=== PATIENT | female | born 1995 | race Caucasian/White ===

== ENCOUNTER 2017-02-10 23:54 | Emergency (ER) | payer SELFPAY ==
[~2017-02-10] VITALS: Ht 160 cm; Wt 68.0 kg
[~2017-02-10 23:54] MED LIST: DELTASONE20 M1 PO; FLONASE ALLERG9.9 ML NAS; PREDNISONE10 MG PO; ROBITUSSIN AC 110 ML PO
[2017-02-11 00:06] VITALS: BP 143/86
[2017-02-11 00:24] LABS: BILIRUBIN NEGATIVE (NEGATIVE); BLOOD NEGATIVE (NEGATIVE); CLARITY CLEAR (CLEAR); COLOR YELLOW (YELLOW); GLUCOSE NEGATIVE (NEGATIVE); KETONE NEGATIVE (NEGATIVE); LEUKO ESTERASE NEGATIVE (NEGATIVE); NITRITE NEGATIVE (NEGATIVE); PROTEIN NEGATIVE (NEGATIVE); UROBILINOGEN 0.2 E.U./dl (0.2-1.0)
[2017-02-11 00:36] LABS: BACTERIA 2+; RBC 0-2 rbc/hpf (0-2); URINE REFLEX COMMENT YES (NO); WBC 0-2 wbc/hpf (0-5)
[2017-02-11] MEDS ORDERED: Motrin,Rufen800 MG PO (01:49)
[2017-02-11] MEDS ORDERED: CYCLOBENZAPRINE5 M3 PO (01:49)
== END 2017-02-11 02:22 | disposition home or self-care (01) ==
LOC: ED 23:54
PROVIDERS: Physician Assistant
DX: M54.5 Low back pain (principal); M25.551 Pain in right hip; M25.552 Pain in left hip; F17.200 Nicotine dependence, unspecified, uncomplicated

== ENCOUNTER 2017-10-22 10:46 | Emergency (ER) | payer SELFPAY ==
[~2017-10-22] VITALS: Ht 162.5 cm; Wt 63.5 kg
[~2017-10-22 10:46] MED LIST changes: +CYCLOBENZAPRINE5 M3 PO; +Motrin,Rufen800 MG PO
[2017-10-22 10:56] VITALS: BP 126/68
[2017-10-22] MEDS ORDERED: AUGMENTIN 875875 MG PO (11:20)
== END 2017-10-22 11:33 | disposition home or self-care (01) ==
LOC: ED 10:46
DX: J02.0 Streptococcal pharyngitis (principal)

== ENCOUNTER 2017-11-24 20:22 | Emergency (ER) | payer SELFPAY ==
[~2017-11-24] VITALS: Ht 160 cm; Wt 67.1 kg
[~2017-11-24 20:22] MED LIST changes: +AUGMENTIN 875875 MG PO
[2017-11-24 20:34] VITALS: BP 126/79
[2017-11-24] MEDS ORDERED: AMOXICILLIN500 M2 PO (21:02)
== END 2017-11-24 21:05 | disposition home or self-care (01) ==
LOC: ED 20:22
DX: J03.00 Acute streptococcal tonsillitis, unspecified (principal); F17.200 Nicotine dependence, unspecified, uncomplicated; Z79.899 Other long term (current) drug therapy

== ENCOUNTER 2017-12-13 23:05 | Emergency (ER) | payer SELFPAY ==
[~2017-12-13] VITALS: Ht 160 cm; Wt 65.8 kg
[~2017-12-13 23:05] MED LIST changes: +AMOXICILLIN500 M2 PO
[2017-12-13 23:48] LABS: BASO % 0.5 % (0.0-1.0); EOS # 0.2 10*3/uL (0.0-0.4); EOS % 2.2 % (1.0-4.0); HEMOGLOBIN 14.5 g/dl (12.0-16.0); LYMPH # 2.9 10*3/uL (1.3-4.4); LYMPH % 35.4 % (27.0-41.0); MEAN CELL VOLUME 89.2 fl (81.0-99.0); MEAN CORPUSCULAR HGB 30.8 pg (27.0-31.0); MEAN CORPUSCULAR HGB CONC 34.5 g/dl (33.0-37.0); MONO % 11.8 % (3.0-9.0); NEUT # 4.1 10*3/uL (2.3-7.9); NEUT % 49.9 % (47.0-73.0); PLATELET COUNT AUTOMATED 240 10*3/uL (130-400); RED BLOOD COUNT 4.71 10*6/uL (4.10-5.10); RED CELL DISTRI WIDTH 12.2 % (0-14.5); WHITE BLOOD COUNT 8.2 10*3/uL (4.8-10.8)
[2017-12-14] LABS: BUN 8 mg/dl (7-24); CHLORIDE 102 mmol/L (98-107); CREATININE 0.72 mg/dL (0.55-1.02); POTASSIUM 3.9 mmol/L (3.5-5.1); SODIUM 138 mmol/L (136-145)
[2017-12-14] MEDS ORDERED: ZOFRAN ODT4 MG SL (00:36)
[2017-12-14] MEDS ORDERED: LOMOTIL 2.5-0.1 EACH PO (00:37)
[2017-12-14 01:15] VITALS: BP 118/73
== END 2017-12-14 01:01 | disposition home or self-care (01) ==
LOC: ED 23:05
PROVIDERS: Emergency Medicine Emergency Medical Services
DX: K52.9 Noninfective gastroenteritis and colitis, unspecified (principal); F17.200 Nicotine dependence, unspecified, uncomplicated; Z79.899 Other long term (current) drug therapy

== ENCOUNTER 2019-11-25 08:54 | Emergency (ER) | payer SELFPAY ==
[~2019-11-25] VITALS: Ht 162.5 cm; Wt 63.5 kg
[~2019-11-25 08:54] MED LIST changes: +LOMOTIL 2.5-0.1 EACH PO; +ZOFRAN ODT4 MG SL
[2019-11-25 09:07] VITALS: BP 122/70
[2019-11-25 09:47] LABS: CLARITY CLOUDY (CLEAR); COLOR YELLOW (YELLOW); GLUCOSE NEGATIVE (NEGATIVE)
[2019-11-25 09:48] LABS: BILIRUBIN NEGATIVE (NEGATIVE); BLOOD NEGATIVE (NEGATIVE); KETONE NEGATIVE (NEGATIVE); LEUKO ESTERASE TRACE (NEGATIVE); NITRITE NEGATIVE (NEGATIVE); UROBILINOGEN 0.2 E.U./dl (0.2-1.0)
[2019-11-25 09:50] LABS: BASO % 0.4 % (0.0-1.0); EOS % 0.4 % (1.0-4.0); HEMATOCRIT 40.4 % (37.0-47.0); HEMOGLOBIN 13.1 g/dl (12.0-16.0); LYMPH # 1.5 10*3/uL (1.3-4.4); LYMPH % 13.1 % (27.0-41.0); MEAN CELL VOLUME 91.8 fl (81.0-99.0); MEAN CORPUSCULAR HGB 29.8 pg (27.0-31.0); MEAN CORPUSCULAR HGB CONC 32.4 g/dl (33.0-37.0); MEAN PLATELET VOLUME 8.9 fl (9.6-12.3); MONO # 0.5 10*3/uL (0.1-1.0); MONO % 4.1 % (3.0-9.0); NEUT # 9.2 10*3/uL (2.3-7.9); NEUT % 81.6 % (47.0-73.0); PLATELET COUNT AUTOMATED 240 10*3/uL (130-400); WHITE BLOOD COUNT 11.3 10*3/uL (4.8-10.8)
[2019-11-25 10:03] LABS: BACTERIA 1+; MUCOUS 1+
[2019-11-25 10:04] LABS: ALBUMIN 3.2 gm/dl (3.1-4.5); ALKALINE PHOSPHATASE 64 U/L (45-117); BUN 10 mg/dl (7-24); CHLORIDE 107 mmol/L (98-107); CREATININE 0.73 mg/dL (0.55-1.02); LIPASE 108 U/L (73-393); POTASSIUM 4.3 mmol/L (3.5-5.1); SGOT/AST 10 IU/L (3-35); SGPT/ALT 19 U/L (12-78); SODIUM 141 mmol/L (136-145); TOTAL PROTEIN 6.8 gm/dL (6.4-8.2)
[2019-11-25] MEDS ORDERED: NAPROSYN500 MG PO (11:37)
== END 2019-11-25 11:50 | disposition home or self-care (01) ==
LOC: ED 08:54
PROVIDERS: Nurse Practitioner Family
DX: S39.011A Strain of muscle, fascia and tendon of abdomen, initial encounter (principal); R07.81 Pleurodynia; F17.200 Nicotine dependence, unspecified, uncomplicated; X58.XXXA Exposure to other specified factors, initial encounter; Y93.89 Activity, other specified; Y92.89 Other specified places as the place of occurrence of the external cause; Y99.8 Other external cause status